=== PATIENT | female | born 2000 | race Caucasian/White ===

== ENCOUNTER 2022-01-07 23:01 | Emergency (ER) | payer MEDICAID ==
[~2022-01-07] VITALS: Ht 170.2 cm; Wt 79.4 kg
[2022-01-07 23:20] VITALS: BP_SYST 121
[2022-01-07] MEDS ORDERED: NACL 0.9% 1,000 ML IV ONE (23:30)
[2022-01-07] MEDS ORDERED: ONDANSETRON HCL 4 MG/2 ML VIAL IVP ONE (23:30)
[2022-01-07] MEDS ORDERED: KETOROLAC TROMETHAMINE 30 MG VIAL IVP ONE (23:30)
--- NOTE | 2022-01-07 23:35 | NUR ---
Pt from home with c/o of headache on the right side of head and behind eye. Pt reports pain started 3 days ago and rates it 7/10. Describes pain as throbbing and tension CORMIER. Pt reports today that she felt weak and fell to her kness, denies LOC and denies head trauma. Pt currently on medications for CORMIER. PT A&O x4, ambulated to bed, and follows simple commands.
--- NOTE | 2022-01-07 23:35 | NUR ---
Dr. Patel at bedside with patient for evaluation.
--- NOTE | 2022-01-07 23:35 | NUR ---
Patient to ER [facility] Bed 2 to gown for evaluation. Side rails up.
[2022-01-08 00:26] LABS: BASOPHILS # (AUTO) 0.1 K/uL (0.0-0.2); BASOPHILS % (AUTO) 0.5 % (0.0-2.0); EOSINOPHILS # (AUTO) 0.2 K/uL (0.0-0.4); EOSINOPHILS % (AUTO) 1.3 % (0.0-4.0); HEMATOCRIT 39.2 % (36-48); HEMOGLOBIN 13.3 g/dL (12.0-16.0); LYMPHOCYTES % (AUTO) 30.8 % (20.5-51.5); MEAN CORPUSCULAR HEMOGLOBIN 29 pg (27-31); MEAN CORPUSCULAR HGB CONC 34 % (32-36); MEAN CORPUSCULAR VOLUME 84 fL (79.0-98.0); MONOCYTES # (AUTO) 1.1 K/uL (0.0-1.0); MONOCYTES % (AUTO) 8.5 % (1.7-9.3); NEUTROPHILS # (AUTO) 7.6 K/uL (1.8-7.7); NEUTROPHILS % (AUTO) 58.9 % (40.0-70.0); PLATELET COUNT (AUTO) 284 K/uL (130-430); RED BLOOD CELL COUNT(AUTO) 4.66 MIL/uL (4.2-6.2); RED CELL DISTRIBUTION WIDTH 13.5 % (9.0-15.0); WHITE BLOOD COUNT (AUTO) 12.9 K/uL (4.8-10.8)
[2022-01-08 00:35] LABS: CALCIUM 9.1 mg/dL (8.4-11.0); CREATININE 0.99 mg/dL (0.55-1.30); POTASSIUM 3.6 mmol/L (3.5-5.1)
[2022-01-08 00:47] LABS: ALBUMIN 3.2 g/dL (3.4-4.8); TOTAL BILIRUBIN 0.6 mg/dL (0.0-1.0)
[2022-01-08 01:22] VITALS: BP_SYST 107
--- NOTE | 2022-01-08 01:25 | NUR ---
Patient given written and verbal discharge instructions and verbalizes understanding. ER MD discussed with patient the results and treatment provided. Patient in stable condition. ID arm band removed. IV catheter removed intact and dressing applied, no active bleeding. Rx of n/a given. Patient educated on pain management and to follow up with PMD. Pain Scale . Opportunity for questions provided and answered. Medication side effect fact sheet provided.
== END 2022-01-08 01:22 | disposition home or self-care (01) ==
LOC: SED 23:01
DX: R51.9 Headache, unspecified (principal); Z79.899 Other long term (current) drug therapy
CPT/HCPCS: 99284; 96374; 96361; 96375; 80053; 84702; 85025; 36415; 93005; J7030; J1885; J2405

== ENCOUNTER 2022-02-21 11:38 | Inpatient (IN) | payer MEDICAID ==
[~2022-02-21] VITALS: Ht 170.2 cm; Wt 79.4 kg
[2022-02-21 11:38] VITALS: BP_SYST 126
--- NOTE | 2022-02-21 11:38 | NUR ---
BROUGHT BACK TO BED #5 AND TRIAGED. REPORT GIVEN TO KELVIN
--- NOTE | 2022-02-21 11:47 | NUR ---
Patient giving urine sample.
--- NOTE | 2022-02-21 11:51 | NUR ---
DR SANTOS AT BEDSIDE FOR EVALUATION
--- NOTE | 2022-02-21 11:59 | NUR ---
Patient came to hospital for c/o "collapse" and abnormal EKG at urgent care. Patient collapsed on floor but denies hitting her head. Patient denies eating or drinking anything abnormal. Patient denies drug use and alcohol use. Patient takes zooleigh control patch. Patient denies past medical issues. AGUSTIN Diaz and AGUSTIN Chanel at the bedside. Will contiune to monitor.
[2022-02-21 12:27] LABS: BASOPHILS # (AUTO) 0.1 K/uL (0.0-0.2); BASOPHILS % (AUTO) 0.4 % (0.0-2.0); EOSINOPHILS # (AUTO) 0.1 K/uL (0.0-0.4); EOSINOPHILS % (AUTO) 0.4 % (0.0-4.0); HEMATOCRIT 39.2 % (36-48); HEMOGLOBIN 13.3 g/dL (12.0-16.0); LYMPHOCYTES # (AUTO) 2.2 K/uL (1.0-5.5); LYMPHOCYTES % (AUTO) 13.1 % (20.5-51.5); MEAN CORPUSCULAR HEMOGLOBIN 29 pg (27-31); MEAN CORPUSCULAR HGB CONC 34 % (32-36); MEAN CORPUSCULAR VOLUME 84 fL (79.0-98.0); MONOCYTES # (AUTO) 0.7 K/uL (0.0-1.0); MONOCYTES % (AUTO) 4.3 % (1.7-9.3); NEUTROPHILS # (AUTO) 13.7 K/uL (1.8-7.7); NEUTROPHILS % (AUTO) 81.8 % (40.0-70.0); PLATELET COUNT (AUTO) 257 K/uL (130-430); RED BLOOD CELL COUNT(AUTO) 4.66 MIL/uL (4.2-6.2); RED CELL DISTRIBUTION WIDTH 13.5 % (9.0-15.0); WHITE BLOOD COUNT (AUTO) 16.7 K/uL (4.8-10.8)
--- NOTE | 2022-02-21 12:34 | NUR ---
COVID TEST COLLECTED AND SAMPLE GIVEN TO LAB LABELED
[2022-02-21 12:49] LABS: BARBITURATE, URINE NEGATIVE (NEG <=200); BENZODIAZEPINE, URINE NEGATIVE (NEG <=150); CANNABINOID, URINE NEGATIVE (NEG <=50); COCAINE, URINE NEGATIVE (NEG <=150); METHAMPHETAMINES SCREEN,URINE NEGATIVE (NEG <=500); OPIATE, URINE NEGATIVE (NEG <=100); PHENCYCLIDINE SCREEN,URINE NEGATIVE (NEG <=25); UR TRICYCLIC ANTIDEPRESSANTS NEGATIVE (NEG <=300); URINE AMPHETAMINE NEGATIVE (NEG <=500); URINE METHADONE NEGATIVE (NEG <=200); URINE OXYCODONE SCREEN NEGATIVE (NEG <=100); URINE PROPOXYPHENE SCREEN NEGATIVE (NEG <=300)
[2022-02-21 13:08] LABS: ANION GAP 8 (5-15); CALCIUM 9.1 mg/dL (8.4-11.0); CHLORIDE 104 mmol/L (98-107); CREATININE 0.84 mg/dL (0.55-1.30); GLUCOSE 117 mg/dL (70-99); SODIUM SERUM 135 mmol/L (136-145); UREA NITROGEN, BLOOD 11 mg/dL (8-21)
[2022-02-21 13:16] LABS: GFR AFRICAN AMERICAN 108 mL/min (>90)
[2022-02-21 13:25] LABS: ALANINE AMINOTRANSFERASE 12 U/L (12-78); ALBUMIN 3.1 g/dL (3.4-4.8); ASPARTATE AMINOTRANSFERASE 11 U/L (10-37); FREE T4 (FREE THYROXINE) 1.1 ng/dl (0.8-1.5); THYROID STIMULATING HORMONE 1.62 uIu/mL (0.36-3.74); TOTAL BILIRUBIN 0.8 mg/dL (0.0-1.0)
--- NOTE | 2022-02-21 13:25 | NUR ---
COVID-19 LU SWAB OBTAINED, LABELED AND SENT TO THE LAB.
--- NOTE | 2022-02-21 13:33 | NUR ---
Pt A&Ox4, respirations even and unlabored.
--- NOTE | 2022-02-21 14:20 | NUR ---
Admit bed requested Patient will be admitted to care of [[facility]]. Admitted to [Tele] unit. Diagnosis [A-fib] Inpatient (Yes or No) [Yes ] Observation (Yes or No) [No] Orientation concerns or request close to nursing station (Yes or No) [No] Covid Status [negative] On vent or bipap [No ] Isolation requirements [No] Needs a sitter [N/A ] From Home (Yes or if No enter name of facility) [yes ] Requires Dialysis (Yes or No) [No] Med Rec Completed (Yes of No) [Yes]
--- NOTE | 2022-02-21 15:15 | NUR ---
Patient will be admitted to care of Dr Sher. Admitted to Tele unit. Will go to room 108C . Belongings list completed. Complete and up to date summary report printed. SBAR report to be given at bedside with opportunity for questions.
--- NOTE | 2022-02-21 15:20 | NUR ---
Patient transferred to unit in stable condition.
--- NOTE | 2022-02-21 15:20 | NUR ---
CONSULTATION PAGED/CALLED Reason for Consultation: [] A FIB Person Who was Notified: [] CARLIE Consulting Physician: [] DR OLSEN Restuarant Crew Worker Specialty: [] MAGISTRATE ASSISTANT Ordering Physician: [] DR QUEVEDO
[2022-02-21 15:45] VITALS: BP_SYST 106
[2022-02-21] MEDS: NACL 0.9% 1,000 ML IV SCH (15:51)
--- NOTE | 2022-02-21 15:51 | NUR ---
Patient resting comfortably in bed with no distress noted. Started ordered IVF. Patient stable at this time.
[2022-02-21] MEDS ORDERED: METOPROLOL SUCCINATE 25 MG TAB.SR.24H (TOPROL XL) PO ONE (19:00)
[2022-02-21] MEDS ORDERED: MAGNESIUM SULFATE 50 ML IV PRN (19:30)
[2022-02-21] MEDS ORDERED: ZOLPIDEM TARTRATE 5 MG TABLET PO PRN (19:30)
[2022-02-21] MEDS ORDERED: LORazepam 2 MG/ML VIAL IVP PRN (19:30)
[2022-02-21] MEDS ORDERED: ONDANSETRON HCL 4 MG/2 ML VIAL IVP PRN (19:30)
[2022-02-21] MEDS ORDERED: POTASSIUM CHLORIDE 20 MEQ TAB.PRT.SR PO PRN (19:30)
[2022-02-21] MEDS ORDERED: ACETAMINOPHEN 325 MG TABLET PO PRN ×2 (19:30)
[2022-02-21] MEDS ORDERED: LORazepam 1 MG TABLET PO PRN (19:30)
[2022-02-21] MEDS ORDERED: MUPIROCIN 2% TOPICAL OINTMENT 22 GM NS PRN (19:30)
[2022-02-21] MEDS ORDERED: DOCUSATE SODIUM 100 MG CAPSULE PO PRN (19:30)
--- NOTE | 2022-02-21 19:34 | NUR ---
Scheduled medication given per order. Mother at bedside. Patient stable since transfer to unit.
[2022-02-21 20:05] VITALS: BP_SYST 114
--- NOTE | 2022-02-21 20:05 | NUR ---
Opening notes Pt AAOx4, VSS, no s/s distress noted. IVF infusing at R.AC no s/s infiltration. Updated pt/mom re plan of care. For echo and labs in AM. They verbalized understanding. Call light within reach. Bed low, locked, siderails up x2. To monitor.
--- NOTE | 2022-02-21 21:30 | NUR ---
Urine sample collected and sent to lab.
[2022-02-21 23:33] LABS: BILIRUBIN,URINE NEGATIVE (NEGATIVE); BLOOD, URINE NEGATIVE (NEGATIVE); CLARITY/URINE CLEAR (CLEAR); COLOR,URINE YELLOW (YELLOW); GLUCOSE,URINE NEGATIVE (NEGATIVE); KETONES,URINE NEGATIVE (NEGATIVE); LEUKOCYTE ESTERASE ,URINE NEGATIVE (NEGATIVE); NITRITE, URINE NEGATIVE (NEGATIVE); PROTEIN URINE NEGATIVE (NEGATIVE); UROBILINOGEN,URINE 0.2 (0.2-1.0)
[2022-02-21 23:38] LABS: HCG,QUAL RESULT NEGATIVE (NEGATIVE)
[2022-02-22 00:20] VITALS: BP_SYST 117
[2022-02-22] MEDS: NACL 0.9% 1,000 ML IV SCH (04:47)
--- NOTE | 2022-02-22 06:10 | NUR ---
Closing notes Pt asleep, no s/s distress noted. IVF infusing at R.AC no s/s infiltration. For echo and labs in AM. Call light within reach. Bed low, locked, siderails up x2. To endorse to AM nurse.
[2022-02-22 07:20] LABS: BASOPHILS % (AUTO) 0.2 % (0.0-2.0); EOSINOPHILS # (AUTO) 0.2 K/uL (0.0-0.4); EOSINOPHILS % (AUTO) 1.7 % (0.0-4.0); HEMATOCRIT 34.8 % (36-48); LYMPHOCYTES # (AUTO) 2.8 K/uL (1.0-5.5); LYMPHOCYTES % (AUTO) 23.6 % (20.5-51.5); MEAN CORPUSCULAR HEMOGLOBIN 29 pg (27-31); MEAN CORPUSCULAR HGB CONC 34 % (32-36); MEAN CORPUSCULAR VOLUME 84 fL (79.0-98.0); MONOCYTES % (AUTO) 8.7 % (1.7-9.3); NEUTROPHILS # (AUTO) 7.8 K/uL (1.8-7.7); NEUTROPHILS % (AUTO) 65.8 % (40.0-70.0); PLATELET COUNT (AUTO) 236 K/uL (130-430); RED BLOOD CELL COUNT(AUTO) 4.13 MIL/uL (4.2-6.2); RED CELL DISTRIBUTION WIDTH 13.5 % (9.0-15.0); WHITE BLOOD COUNT (AUTO) 11.9 K/uL (4.8-10.8)
--- NOTE | 2022-02-22 08:00 | NUR ---
AM NOTES TOOK BREAKFAST TOLERATED WELL, HEART RATE ON 52/MIN, HOLD ATENOLOL FOR NOW. DR OLSEN MADE AWARE. DR LANCE AND DR OLSEN IS HERETO SEE PATIENT. Addendum: 02/22/22 at 1442 by Aany Almonte RN ABOVE NOTES CORRECTION DISREGARD ATENOLOL, IT IS METOPROLOL.
[2022-02-22 08:03] VITALS: BP_SYST 106
[2022-02-22 08:03] LABS: CALCIUM 8.6 mg/dL (8.4-11.0); CREATININE 0.75 mg/dL (0.55-1.30); POTASSIUM 3.9 mmol/L (3.5-5.1)
[2022-02-22] MEDS ORDERED: IBUPROFEN 800 MG TABLET PO PRN (08:30)
[2022-02-22] MEDS ORDERED: METO25TA3 PO (08:43)
[2022-02-22] MEDS ORDERED: METOPROLOL SUCCINATE 25 MG TAB.SR.24H (TOPROL XL) PO SCH (09:00)
--- NOTE | 2022-02-22 10:45 | NUR ---
METOPROLOL GIVEN HR 106/MIN ON HEART MONITOR, BP 103/56. FOR DISCHARGE TODAY, MOTHER WAS HERE TO SEE PATIENT.
[2022-02-22 11:00] VITALS: BP_SYST 103
[2022-02-22 11:36] VITALS: BP_SYST 103
--- NOTE | 2022-02-22 11:50 | NUR ---
D/C Patient Patient given medication reconciliation form and D/C instructions. Exit Care provided. Patient verbalized understanding. MD discussed with patient the results and treatment provided. Ambulatory with steady gait for discharge to home. Patient in stable condition, ID band removed. IV catheter removed, intact and dressing applied, no active bleeding. Rx of given. Patient educated on pain management. All belongings sent with patient. Discharge home via wheelchair accompanied by GODWIN,pickle cutter by her mother.
== END 2022-02-22 11:50 | disposition home or self-care (01) | DRG 48 ==
LOC: SED 11:38 → STU 14:13
PROVIDERS: ADMIT General Practice; ATTEND General Practice
DX: G90.8 Other disorders of autonomic nervous system (principal); R65.11 Systemic inflammatory response syndrome (SIRS) of non-infectious origin with acute organ dysfunction; I48.92 Unspecified atrial flutter; D72.829 Elevated white blood cell count, unspecified; Z20.822 Contact with and (suspected) exposure to COVID-19
CPT/HCPCS: 36415; 71045; 80048; 80053; 80307; 81003; 82550; 83036; 83605; 83735; 83880; 84439; 84443; 84484; 84703; 85025; 87040; 93005; 93306; 99285; G0378; G0482

== ENCOUNTER 2022-08-13 10:52 | Emergency (ER) | payer MEDICAID ==
[~2022-08-13] VITALS: Ht 170.2 cm; Wt 77.1 kg
[~2022-08-13 10:52] MED LIST: METO25TA3 PO
--- NOTE | 2022-08-13 11:00 | NUR ---
Patient triaged and placed in waiting room. VSS and patient appears in no acute distress at this time. Accompanied by SELF, awaiting available bed, and MD notified of need for MSE.
[2022-08-13 11:15] VITALS: BP_SYST 144
--- NOTE | 2022-08-13 11:35 | NUR ---
URINE SAMPLE COLLECTED, LABELED AND SENT TO LAB
--- NOTE | 2022-08-13 11:42 | NUR ---
Patient to ER bed TRIAGE to gown for evaluation. Side rails up.
--- NOTE | 2022-08-13 11:45 | NUR ---
ER IN TRIAGE examining patient.
--- NOTE | 2022-08-13 12:00 | NUR ---
PT PRESENTS TO ED FROM FOR FURTHER EVALUATION OF RLQ ABD PAIN.
[2022-08-13 12:03] LABS: BASOPHILS # (AUTO) 0.1 K/uL (0.0-0.2); BASOPHILS % (AUTO) 1.2 % (0.0-2.0); EOSINOPHILS # (AUTO) 0.1 K/uL (0.0-0.4); EOSINOPHILS % (AUTO) 1.8 % (0.0-4.0); HEMATOCRIT 41.3 % (36-48); LYMPHOCYTES # (AUTO) 1.9 K/uL (1.0-5.5); LYMPHOCYTES % (AUTO) 32.5 % (20.5-51.5); MEAN CORPUSCULAR HEMOGLOBIN 28 pg (27-31); MEAN CORPUSCULAR HGB CONC 34 % (32-36); MEAN CORPUSCULAR VOLUME 81 fL (79.0-98.0); MONOCYTES # (AUTO) 0.8 K/uL (0.0-1.0); MONOCYTES % (AUTO) 13.5 % (1.7-9.3); PLATELET COUNT (AUTO) 296 K/uL (130-430); RED BLOOD CELL COUNT(AUTO) 5.07 MIL/uL (4.2-6.2); RED CELL DISTRIBUTION WIDTH 14.2 % (9.0-15.0); WHITE BLOOD COUNT (AUTO) 5.9 K/uL (4.8-10.8)
[2022-08-13 12:32] LABS: CALCIUM 8.9 mg/dL (8.4-11.0); CREATININE 0.85 mg/dL (0.55-1.30)
[2022-08-13 12:39] LABS: ALBUMIN 3.2 g/dL (3.4-4.8); TOTAL BILIRUBIN 0.5 mg/dL (0.0-1.0)
[2022-08-13] MEDS ORDERED: TRAM50TA2 PO (14:15)
--- NOTE | 2022-08-13 14:46 | NUR ---
Patient given written and verbal discharge instructions and verbalizes understanding. ER MD discussed with patient the results and treatment provided. Patient in stable condition. ID arm band removed. Rx of TRAMADOL given. Patient educated on pain management and to follow up with PMD. Pain Scale 2. Opportunity for questions provided and answered. Medication side effect fact sheet provided.
== END 2022-08-13 14:46 | disposition home or self-care (01) ==
LOC: SED 10:52
DX: R10.31 Right lower quadrant pain (principal); R11.2 Nausea with vomiting, unspecified; R19.7 Diarrhea, unspecified; Z79.899 Other long term (current) drug therapy
CPT/HCPCS: 36415; 76376; 80053; 81025; 85025; 99284

== ENCOUNTER 2023-08-07 09:38 | Emergency (ER) | payer MEDICAID ==
[~2023-08-07] VITALS: Ht 170.2 cm; Wt 77.1 kg
[2023-08-07 09:38] VITALS: BP_SYST 108; PULSE 81; RESP 19; TEMP 98.3; O2SAT 100
[~2023-08-07 09:38] MED LIST changes: +TRAM50TA2 PO
[2023-08-07] MEDS ORDERED: KETOROLAC TROMETHAMINE 30 MG VIAL IM ONE (10:00)
[2023-08-07 10:22] LABS: BILIRUBIN,URINE NEGATIVE (NEGATIVE); BLOOD, URINE NEGATIVE (NEGATIVE); CLARITY/URINE CLEAR (CLEAR); COLOR,URINE YELLOW (YELLOW); GLUCOSE,URINE NEGATIVE (NEGATIVE); KETONES,URINE NEGATIVE (NEGATIVE); LEUKOCYTE ESTERASE ,URINE NEGATIVE (NEGATIVE); NITRITE, URINE NEGATIVE (NEGATIVE); PROTEIN URINE NEGATIVE (NEGATIVE); UROBILINOGEN,URINE 0.2 (0.2-1.0)
[2023-08-07 10:27] LABS: BASOPHILS % (AUTO) 0.5 % (0.0-2.0); EOSINOPHILS # (AUTO) 0.1 K/uL (0.0-0.4); EOSINOPHILS % (AUTO) 1.3 % (0.0-4.0); HEMATOCRIT 38.9 % (36-48); HEMOGLOBIN 13.6 g/dL (12.0-16.0); LYMPHOCYTES # (AUTO) 2.4 K/uL (1.0-5.5); LYMPHOCYTES % (AUTO) 24.5 % (20.5-51.5); MEAN CORPUSCULAR HEMOGLOBIN 30 pg (27-31); MEAN CORPUSCULAR HGB CONC 35 % (32-36); MEAN CORPUSCULAR VOLUME 85 fL (79.0-98.0); MONOCYTES # (AUTO) 0.7 K/uL (0.0-1.0); MONOCYTES % (AUTO) 7.1 % (1.7-9.3); NEUTROPHILS # (AUTO) 6.4 K/uL (1.8-7.7); NEUTROPHILS % (AUTO) 66.6 % (40.0-70.0); PLATELET COUNT (AUTO) 277 K/uL (130-430); RED BLOOD CELL COUNT(AUTO) 4.58 MIL/uL (4.2-6.2); RED CELL DISTRIBUTION WIDTH 13.1 % (9.0-15.0); WHITE BLOOD COUNT (AUTO) 9.7 K/uL (4.8-10.8)
[2023-08-07] MEDS: MORPHINE 4 MG INJ. 4 MG/ML VIAL IVP ONE (10:38)
[2023-08-07] MEDS: ONDANSETRON HCL 4 MG/2 ML VIAL IVP ONE (10:39)
[2023-08-07 10:42] LABS: ANION GAP 8 (5-15); CARBON DIOXIDE 26 mmol/L (23-29); CHLORIDE 105 mmol/L (98-107); GFR AFRICAN AMERICAN 99 mL/min (>90); GLUCOSE 82 mg/dL (74-106); POTASSIUM 4.4 mmol/L (3.5-5.1); SODIUM SERUM 139 mmol/L (136-145); UREA NITROGEN, BLOOD 11 mg/dL (8-21)
[2023-08-07 10:43] LABS: GFR NON AFRICAN-AMERICAN 82 mL/min (>90)
[2023-08-07 10:44] LABS: SERUM HCG (QUALITATIVE) NEGATIVE (NEGATIVE)
[2023-08-07 10:46] LABS: ALANINE AMINOTRANSFERASE 19 U/L (12-78); ALBUMIN 3.1 g/dL (3.4-4.8); ASPARTATE AMINOTRANSFERASE 9 U/L (10-37); BILIRUBIN,DIRECT 0.2 mg/dL (0.0-0.3); LIPASE 14 U/L (16-77); TOTAL BILIRUBIN 1.1 mg/dL (0.0-1.0); TOTAL PROTEIN, SERUM 7.1 g/dL (6.4-8.3)
[2023-08-07 10:47] LABS: ALCOHOL, BLOOD < 3 mg/dL (<10)
[2023-08-07] MEDS ORDERED: ACET-2634 PO (13:19)
[2023-08-07] MEDS ORDERED: DICY10SO PO (13:19)
[2023-08-07] MEDS ORDERED: ONDANSETRON HCL 4 MG/2 ML VIAL IVP ONE (13:45)
[2023-08-07] MEDS: ONDANSETRON 4 MG ODT TAB PO ONE (13:52)
[2023-08-07 13:55] VITALS: BP_SYST 118; PULSE 89; RESP 16; TEMP 98.3; O2SAT 96
== END 2023-08-07 13:53 | disposition home or self-care (01) ==
LOC: SED 09:38
DX: R10.84 Generalized abdominal pain (principal); Z79.899 Other long term (current) drug therapy
CPT/HCPCS: 99285; 74176; 96374; 76705; 96375; 80053; 82248; 84703; 83690; 85025; 36415; 76376; 81025; 81003; 81001; G0482; Q0162; J2405; J2270